=== PATIENT | male | born 2000 | race Caucasian/White ===

== ENCOUNTER 2021-07-07 14:41 | Emergency (ER) | payer BC, OTHER | END 2021-07-07 19:18 | disposition home or self-care (01) | LOC: CSHERS 14:41 | DX: S62.336A Displaced fracture of neck of fifth metacarpal bone, right hand, initial encounter for closed fracture (principal); X58.XXXA Exposure to other specified factors, initial encounter | CPT/HCPCS: 29125; 99283 ==